=== PATIENT | female | born 1955 | race Caucasian/White ===

== ENCOUNTER 2019-09-20 09:14 | Emergency (ER) | payer MEDICARE ==
[~2019-09-20] VITALS: Ht 167.6 cm; Wt 60.0 kg
--- NOTE | 2019-09-20 09:33 | NUR ---
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
[2019-09-20] MEDS ORDERED: normal saline 1000ML IV soln IV ONE (09:35)
[2019-09-20 10:35] LABS: ALANINE AMINOTRANSFERASE 15 U/L (12-78); ALBUMIN 2.8 G/DL (3.4-5.0); ALBUMIN/GLOBULIN RATIO 0.8 (1.1-1.5); ALKALINE PHOSPHATASE 78 IU/L (46-116); ANION GAP 8 (8-16); ASPARTATE AMINO TRANSFERASE 12 U/L (10-37); BILIRUBIN,TOTAL 0.4 MG/DL (0.1-1.0); BLOOD UREA NITROGEN 11 MG/DL (7-18); BUN/CREATININE RATIO 11.6 (6.6-38.0); CALCIUM 8.4 MG/DL (8.5-10.1); CHLORIDE 99 MMOL/L (99-107); CREATININE 0.95 MG/DL (0.40-0.90); GLUCOSE 93 MG/DL (70-104); MAGNESIUM 1.1 MG/DL (1.5-2.4); POTASSIUM 3.6 MMOL/L (3.5-5.1); SODIUM 131 MMOL/L (135-145); TOTAL CARBON DIOXIDE 23.7 MMOL/L (24-32); TOTAL PROTEIN 6.5 G/DL (6.4-8.2); eGFR 59 ML/MIN
[2019-09-20 10:36] LABS: URINE HCG NEGATIVE (NEG)
[2019-09-20 10:39] LABS: D-DIMER 5.35 MG/L FEU (0-0.50); PARTIAL THROMBOPLASTIN TIME 33 SECONDS (22-32)
[2019-09-20 10:53] LABS: CLARITY,URINE CLEAR (Clear); COLOR,URINE YELLOW (Yellow); GLUCOSE, URINE NEGATIVE (Neg); KETONES,URINE NEGATIVE (Neg); LEUKOCYTE ESTERASE ,URINE NEGATIVE (Neg); NITRITES, URINE NEGATIVE (Neg); OCCULT BLOOD,URINE SMALL (Neg); PROTEIN,URINE 30 mg/dl (Neg); UROBILINOGEN,URINE 0.2 E.U/dL (0.2-1.0)
[2019-09-20 10:54] LABS: UA COLLECTION TYPE CLN CATCH MIDSTREAM
[2019-09-20 11:07] LABS: SQUAMOUS EPITHELIAL CELL,UR MANY /LPF (FEW)
[2019-09-20 11:09] LABS: BACTERIA,URINE 1+ /HPF (Neg); WBC,URINE 0-4 /HPF (0-4)
--- NOTE | 2019-09-20 11:18 | NUR ---
PLACED APTIENT ON TRNDELENBERG,1500 NS BOLUS RUNNING CALL LIGHT WITHIN REACH.
[2019-09-20 11:42] LABS: TOTAL CELLS COUNTED 100
[2019-09-20 11:43] LABS: LARGE PLATELETS FEW
[2019-09-20 11:45] LABS: PLATELET ESTIMATE DECREASED; ROULEAUX 1+
[2019-09-20 11:54] LABS: BASOPHILS % (AUTO) 0.4 % (0-1); EOSINOPHILS % (AUTO) 1.7 % (0-6); HEMATOCRIT 31.4 % (35.0-45.0); HEMOGLOBIN 10.7 g/dl (12.0-16.0); LYMPHOCYTES # (AUTO) 0.1 X10'3 (1.1-4.8); LYMPHOCYTES % (AUTO) 23.1 % (21-51); MEAN CORPUSCULAR HEMOGLOBIN 32.5 PG (27.0-31.0); MEAN CORPUSCULAR HGB CONC 34.1 g/dL (33.0-36.5); MEAN CORPUSCULAR VOLUME 95.2 FL (78-98); MEAN PLATELET VOLUME 9.9 FL (7.4-10.4); MONOCYTES # (AUTO) 0.1 X10'3 (0-0.9); MONOCYTES % (AUTO) 20.7 % (2-12); NEUTROPHILS # (AUTO) 0.3 X10'3 (1.8-7.7); NEUTROPHILS % (AUTO) 54.1 % (42-75); PLATELET COUNT 70 X10'3 (140-440); RED BLOOD COUNT 3.29 X10'6 (4.20-5.60); RED CELL DISTRIBUTION WIDTH 12.9 % (11.5-14.5)
[2019-09-20 11:59] LABS: WHITE BLOOD COUNT 0.6 X10'3 (4.5-11.0)
[2019-09-20] MEDS ORDERED: iohexol 350MG/ML 100ml bottle IV ONE (12:19)
--- NOTE | 2019-09-20 12:23 | NUR ---
contacting oncology dr greta identification and records commander will call back
[2019-09-20 14:14] VITALS: BP 95/62
== END 2019-09-20 14:34 | disposition home or self-care (01) ==
LOC: ER 09:15
DX: R06.02 Shortness of breath (principal); R05 Cough; R11.0 Nausea; R19.7 Diarrhea, unspecified; C50.919 Malignant neoplasm of unspecified site of unspecified female breast; D70.2 Other drug-induced agranulocytosis; E78.00 Pure hypercholesterolemia, unspecified; I10 Essential (primary) hypertension; Z20.828 Contact with and (suspected) exposure to other viral communicable diseases
CPT/HCPCS: 36415; 71045; 71275; 80053; 81001; 81025; 83605; 83735; 84145; 85025; 85379; 85610; 85730; 87040; 87635; 93005; 96360; 99285; C9803; J7030; Q9967